=== PATIENT | male | born 1995 | race Hispanic/Latino ===

== ENCOUNTER 2018-01-12 18:57 | Emergency (ER) | payer BC ==
[~2018-01-12] VITALS: Ht 180.3 cm; Wt 100.0 kg
[~2018-01-12 18:57] MED LIST: NAPROSYN500 MG PO
[2018-01-12] MEDS ORDERED: ZITHROMAX Z-PA250 MG PO (19:07)
[2018-01-12 19:36] LABS: HEMATOCRIT 40.5 % (39.0-50.0); IMMATURE GRANULOCYTES 0.3 % (0.0-1.0); MEAN CELL VOLUME 83.9 fL CALC (80.0-100.0); MEAN CORPUSCULAR HGB CONC 34.6 g/L CALC (32.0-36.0); NEUT# 7.53 thou/uL (1.82-7.42); RED BLOOD COUNT 4.83 mill/uL (4.70-6.10); RED CELL DISTRI WIDTH 11.9 % (11.5-15.5)
[2018-01-12] MEDS ORDERED: PREDNISONE10 MG PO (19:57)
[2018-01-12] MEDS ORDERED: VOLTAREN - GENE75 MG PO (19:57)
[2018-01-12 20:08] VITALS: BP 137/89
== END 2018-01-12 20:08 | disposition home or self-care (01) | DRG 153 ==
LOC: ED 18:57
PROVIDERS: Family Medicine
DX: J03.90 Acute tonsillitis, unspecified (principal)